=== PATIENT | male | born 1985 | race Two or more races ===

== ENCOUNTER 2017-01-22 19:33 | Emergency (ER) | payer OTHER ==
[~2017-01-22] VITALS: Ht 172.7 cm; Wt 75.9 kg
[2017-01-22 19:36] VITALS: BP 137/92
== END 2017-01-22 21:17 | disposition home or self-care (01) ==
LOC: ED 20:54
DX: K64.4 Residual hemorrhoidal skin tags (principal)
CPT/HCPCS: 99283

== ENCOUNTER 2018-02-09 20:32 | Emergency (ER) | payer OTHER ==
[~2018-02-09] VITALS: Ht 170.2 cm; Wt 73.2 kg
[2018-02-09] MEDS ORDERED: ONDANSETRON 2MG/ML, 2ML ONE (20:57)
[2018-02-09] MEDS ORDERED: HYDROmorphone 2 MG/ML, 1ML ONE (20:57)
[2018-02-09] MEDS ORDERED: HYDROmorphone 1 MG/ML, 1ML IVPush PRN (21:00)
[2018-02-09] MEDS ORDERED: ONDANSETRON 2MG/ML, 2ML IVPush ONE (21:00)
[2018-02-09] MEDS ORDERED: SODIUM CHLORIDE FLUSH 10ML SYR IVF ONE (21:00)
[2018-02-09] MEDS ORDERED: KETOROLAC 30 MG/1 ML ONE (21:58)
[2018-02-09] MEDS ORDERED: KETOROLAC 30 MG/1 ML IVPush ONE (22:00)
[2018-02-09 22:46] LABS: CULTURE INDICATED? YES; MICROSCOPIC INDICATED
[2018-02-09 23:10] VITALS: BP 109/65
== END 2018-02-09 23:12 | disposition home or self-care (01) ==
LOC: ED 23:09
DX: N20.1 Calculus of ureter (principal)
CPT/HCPCS: 74176; 81001; 87086; 96374; 96375; 99285; J1170; J1885; J2405